=== PATIENT | male | born 1985 | race Caucasian/White ===

== ENCOUNTER 2016-09-21 17:58 | Emergency (ER) | payer MEDICAID ==
[2016-09-21 19:46] VITALS: BP 142/74
== END 2016-09-21 19:46 | disposition home or self-care (01) ==
LOC: ED 17:58
DX: H10.502 Unspecified blepharoconjunctivitis, left eye (principal)

== ENCOUNTER 2017-11-06 08:54 | Inpatient (IN) | payer MEDICAID ==
[~2017-11-06] VITALS: Ht 157.5 cm; Wt 63.5 kg
[2017-11-06 09:01] VITALS: Ht 157.5 cm; Wt 63.5 kg
[2017-11-06 10:14] LABS: BASOPHIL % 0.2 % (0-2); PLATELET COUNT 173 x10^3mcL (130-400); RED CELL DISTRIBUTION WIDTH 13.1 % (11.5-14.5)
[2017-11-06 10:32] LABS: CALCIUM 9.2 mg/dL (8.5-10.1); CARBON DIOXIDE 26.3 mmol/L (21-32); CHLORIDE SERUM 104 mmol/L (98-107); CREATININE SERUM 0.8 mg/dL (0.7-1.3); GFR1 > 60 mL/min; GLUCOSE SERUM 98 mg/dL (74-106); POTASSIUM SERUM 3.9 mmol/L (3.5-5.1); SODIUM SERUM 138 mmol/L (136-145)
[2017-11-06 10:36] LABS: ALBUMIN 4.3 g/dL (3.4-5.0); ALKALINE PHOSPHATASE 63 U/L (46-116); ALT/SGPT 12 U/L (16-63); AST/SGOT 31 U/L (15-37); BILIRUBIN TOTAL 0.86 mg/dL (0.20-1.00); LIPASE 93 IU/L (73-393); TOTAL PROTEIN, SERUM 7.6 g/dL (6.4-8.2)
[2017-11-06 11:24] LABS: UA SPECIFIC GRAVITY 1.015 (1.005-1.035); microscopic required? YES; urine erythrocyte NEGATIVE (NEGATIVE)
[2017-11-06 12:55] LABS: CHOLESTEROL/HDL RATIO 3.2; PHOSPHOROUS 3.5 mg/dL (2.5-4.9)
[2017-11-06 13:05] LABS: T3 TOTAL 1.21 ng/mL
[2017-11-06 13:34] VITALS: BP 105/64
[2017-11-06 15:11] LABS: AMPHETAMINE QUAL UR NONE DETECTED (See below)
[2017-11-06 18:56] LABS: FREE T4 1.06 ng/dL (0.76-1.46); FREE THYROXINE INDEX 3.1 ug/dL (1.4-4.5); T4(THYROXINE) 8.5 ug/dL (4.7-13.3)
[2017-11-07 03:50] VITALS: BP 107/61
[2017-11-07 05:47] VITALS: BP 102/59
[2017-11-07 05:48] LABS: BASOPHIL % 0.2 % (0-2); PLATELET COUNT 166 x10^3mcL (130-400)
[2017-11-07 06:11] LABS: CALCIUM 8.2 mg/dL (8.5-10.1); CARBON DIOXIDE 23.3 mmol/L (21-32); CHLORIDE SERUM 105 mmol/L (98-107); CREATININE SERUM 0.8 mg/dL (0.7-1.3); GFR1 > 60 mL/min; GLUCOSE SERUM 102 mg/dL (74-106); PHOSPHOROUS 4.7 mg/dL (2.5-4.9); POTASSIUM SERUM 4.2 mmol/L (3.5-5.1); SODIUM SERUM 139 mmol/L (136-145)
[2017-11-07 09:42] VITALS: BP 107/57
[2017-11-07 13:49] VITALS: BP 107/67
[2017-11-07] MEDS ORDERED: APAP/HYDROCODON1 T13 PO (14:10)
[2017-11-07 14:12] VITALS: BP 107/67
== END 2017-11-07 15:53 | disposition home or self-care (01) | DRG 234 ==
LOC: ED 08:54 → DU 11:26
PROVIDERS: Emergency Medicine; Family Medicine; Surgery
PROC: 0DTJ4ZZ Resection of Appendix, Percutaneous Endoscopic Approach (ICD-10-PCS; principal; 2017-11-06 15:30)
DX: K35.80 Unspecified acute appendicitis (principal); Z68.25 Body mass index [BMI] 25.0-25.9, adult
CPT/HCPCS: 83880; 84439; 94150; J0330; J1644; J1885; J2250; J2270; J2405; J2543; J2704; J2710; J3010; J3490; J7030; J7050; J7120; Q0092